=== PATIENT | female | born 1990 | race Caucasian/White ===

== ENCOUNTER 2016-08-24 04:52 | Emergency (ER) | payer SELFPAY ==
[~2016-08-24] VITALS: Ht 165.1 cm; Wt 113.4 kg
[~2016-08-24 04:52] MED LIST: ALBUTEROL0.09 MG/A2 IH; AMOXICILLIN500 MG PO; AMOXIL500 MG PO; AUGMENTIN 875 M1 TAB PO; CIPRODEX 0.3%-7.5 ML OT; FLONASE0.05 MG/AC NS; MEDROL DOSEPAK4 MG PO; MOTRIN800 MG PO; NKHM; ROBITUSSIN AC 110 ML PO; ROBITUSSIN DM120 ML PO; TESSALON PERLE100 M1 PO; VOLTAREN50 M1 PO; ZITHROMAX Z PA250 MG PO
== END 2016-08-24 05:27 | disposition home or self-care (01) ==
LOC: ED 04:52
DX: S63.502A Unspecified sprain of left wrist, initial encounter (principal); Z98.890 Other specified postprocedural states; W19.XXXA Unspecified fall, initial encounter; Y93.89 Activity, other specified; Y92.89 Other specified places as the place of occurrence of the external cause; Y99.9 Unspecified external cause status